=== PATIENT | female | born 1980 | race Caucasian/White ===

== ENCOUNTER 2023-08-23 10:02 | Emergency (ER) | payer OTHER ==
[~2023-08-23] VITALS: Ht 160 cm; Wt 81.7 kg
[2023-08-23] MEDS ORDERED: PSEUDOEPHEDRINE30 M1 PO (11:06)
== END 2023-08-23 11:23 | disposition home or self-care (01) ==
LOC: ER 10:02
DX: R68.89 Other general symptoms and signs (principal); Z88.0 Allergy status to penicillin
CPT/HCPCS: 99283

== ENCOUNTER 2024-04-21 16:27 | Emergency (ER) | payer OTHER ==
[~2024-04-21] VITALS: Ht 167.6 cm; Wt 70.3 kg
[~2024-04-21 16:27] MED LIST: PSEUDOEPHEDRINE30 M1 PO
[2024-04-21] MEDS ORDERED: CeFAZolin Sodium 1,000 MG in NS 50 ML IV ONE (16:40)
[2024-04-21] MEDS ORDERED: Diphth,Pertuss(Acell),Tet Vac 0.5 ML VIAL IM ONE (16:40)
[2024-04-21 16:48] LABS: BASOPHILS ABSOLUTE AUTO 0.05 K/mm3 (0.00-0.23); BASOPHILS PERCENT AUTO 1 % (0-2); EOSINOPHILS PERCENT AUTO 1 % (0-6); Hematocrit 29.2 % (33.0-51.0); Hemoglobin 8.5 g/dL (11.5-16.0); IMMATURE GRAN PERCENT AUTO 1 % (0-1); LYMPHOCYTES ABSOLUTE AUTO 2.42 K/mm3 (0.84-5.20); LYMPHOCYTES PERCENT AUTO 31 % (21-46); MONOCYTES ABSOLUTE AUTO 0.63 K/mm3 (0.16-1.47); MONOCYTES PERCENT AUTO 8 % (4-13); Mean Corpuscular HGB 21.3 pg (26.0-34.0); Mean Corpuscular HGB Conc 29.1 g/dL (31.5-36.5); Mean Corpuscular Volume 73 fL (80-100); Mean Platelet Volume 10.4 fL (9.1-12.4); NEUTROPHILS ABSOLUTE AUTO 4.49 K/mm3 (1.96-9.15); NEUTROPHILS PERCENT AUTO 58 % (41-73); Platelet Count 277 K/mm3 (150-400); RDW Coefficient Variation 18.2 % (11.7-14.2); RDW Standard Deviation 47.9 fL (35.1-46.3); Red Blood Cell Count 3.99 M/mm3 (3.80-5.20); White Blood Cell Count 7.79 K/mm3 (4.00-11.30)
[2024-04-21] MEDS ORDERED: FentaNYL Citrate 50 MCG/ML 2 ML Injection IV ONE ×2 (16:50→17:40)
--- NOTE | 2024-04-21 17:02 | NUR ---
"Spiritual Care | Trauma Team family Support Pt. is being attended to ethan this utility worker [employer] brought the spouse into the consult room. Spouse was in need of some water. This utility worker [employer] retrieved a glass of ice water from the galley. The spouse verbalized gratitude for the spiritual care support. Will contineu to monitor Pt. and spouse."
[2024-04-21 17:04] LABS: International Normalized Ratio 0.98; Prothrombin Time Results 10.5 Sec (9.7-11.5)
[2024-04-21 17:12] LABS: Beta HCG, Quantitative, Serum <1 mIU/mL (0-3)
[2024-04-21 17:18] LABS: Alanine Aminotransfer (ALT/SGP 32 U/L (12-78); Albumin, Blood 3.3 g/dL (3.4-5.0); Albumin/Globulin Ratio 0.8 (0.8-1.8); Alk Phos 117 U/L (50-136); Anion Gap 14 mmol/L (3-11); Aspartate Aminotrans (AST/SGOT 45 U/L (12-37); Bilirubin, Total 0.3 mg/dL (0.1-1.0); Blood Urea Nitrogen 8 mg/dL (8-24); Bun/Creatinine Ratio 11.3 (12.0-20.0); CO2, Blood 20 mmol/L (21-32); Calcium, Blood 8.5 mg/dL (8.5-10.1); Chloride, Blood 109 mmol/L (98-108); Creatinine, Blood 0.71 mg/dL (0.40-1.00); Ethanol (Alcohol), Blood, Med 64 mg/dL; Globulin, Blood 4.1 g/dL (2.2-4.0); Glomerular Filtration Rate 109 (60-); Glucose, Blood 106 mg/dL (70-99); Potassium, Blood 3.8 mmol/L (3.5-5.5); Sodium, Blood 139 mmol/L (136-145); Total Protein, Blood 7.4 g/dL (6.4-8.2)
[2024-04-21] MEDS ORDERED: Ondansetron HCl 2 MG / ML 2ML Vial IV ONE (17:50)
[2024-04-21] MEDS ORDERED: Morphine Sulfate 4 MG/1 ML Injection IV ONE (18:15)
== END 2024-04-21 20:02 | disposition home or self-care (01) ==
LOC: ER 16:27
PROVIDERS: Emergency Medicine
DX: S32.591A Other specified fracture of right pubis, initial encounter for closed fracture (principal); S32.391A Other fracture of right ilium, initial encounter for closed fracture; S32.491A Other specified fracture of right acetabulum, initial encounter for closed fracture; S22.081A Stable burst fracture of T11-T12 vertebra, initial encounter for closed fracture; S32.048A Other fracture of fourth lumbar vertebra, initial encounter for closed fracture; S32.058A Other fracture of fifth lumbar vertebra, initial encounter for closed fracture; S52.572A Other intraarticular fracture of lower end of left radius, initial encounter for closed fracture; S01.81XA Laceration without foreign body of other part of head, initial encounter; S81.832A Puncture wound without foreign body, left lower leg, initial encounter; Z88.0 Allergy status to penicillin; Z79.899 Other long term (current) drug therapy; V19.49XA Pedal cycle driver injured in collision with other motor vehicles in traffic accident, initial encounter
CPT/HCPCS: 12011; 25605; 70450; 71045; 71260; 72125; 73090; 73110; 73551; 73590; 74177; 80053; 80320; 83690; 84702; 85025; 85610; 86850; 86900; 86901; 90471; 90715; 96365-59; 96375-59; 96376-59; 99285-25; J0690; J2270; J2405; J3010; Q9967

== ENCOUNTER 2024-08-24 09:23 | Emergency (ER) | payer OTHER ==
[~2024-08-24] VITALS: Ht 160 cm; Wt 72.6 kg
[~2024-08-24 09:23] MED LIST changes: +CEPH500 PO
== END 2024-08-24 10:10 ==
LOC: ER 09:23
DX: Z02.89 Encounter for other administrative examinations (principal)
CPT/HCPCS: 99282

== ENCOUNTER 2025-01-15 14:41 | Emergency (ER) | payer OTHER ==
[~2025-01-15] VITALS: Ht 160 cm; Wt 72.6 kg
== END 2025-01-15 19:07 | disposition left against medical advice (07) ==
LOC: ER 14:41
DX: R22.32 Localized swelling, mass and lump, left upper limb (principal); Z53.29 Procedure and treatment not carried out because of patient's decision for other reasons; Z88.0 Allergy status to penicillin; Z59.89 Other problems related to housing and economic circumstances
CPT/HCPCS: 76882; 99282-25